=== PATIENT | male | born 1980 | race Caucasian/White ===

== ENCOUNTER 2020-05-11 11:42 | Emergency (ER) | payer BC, OTHER ==
[2020-05-11 12:00] VITALS: BP 132/93; PULSE 64; TEMP 98.2; BMI 24.4
[2020-05-11] MEDS ORDERED: KETOROLAC TROMETHAMINE 60 MG/2 ML VIAL IM ONE (12:07)
--- NOTE | 2020-05-11 12:08 | PDOC ---
History of Present Illness - General Chief Complaint: Toothache Stated Complaint: TOOTHACHE Time Seen by Provider: 05/11/20 12:00 History Source: Patient Exam Limitations: No Limitations Past History - Travel History Traveled outside of the country in the last 30 days: No Close contact w/someone who was outside of country & ill: No - Medical History Allergies/Adverse Reactions: Allergies Allergy/AdvReac Type Severity Reaction Status Date / Time No Known Allergies Allergy Verified 05/11/20 11:47 Home Medications: Ambulatory Orders Amox-Tr/K Cl [Augmentin - 875Mg Tablet] 1 tab PO BID #20 tablet 05/11/20 traMADol HCL [Ultram -] 50 mg PO Q8H PRN #10 tablet MDD 3 05/11/20 COPD: No - Psycho-Social/Smoking History Smoking History: Current every day smoker Have you smoked in the past 12 months: Yes Number of Cigarettes Smoked Daily: 20 Information on smoking cessation initiated: Yes 'Breaking Loose' booklet given: 02/01/16 - Substance Abuse Hx (Audit-C & DAST Scrn) How often the patient has a drink containing alcohol: Monthly or less How often the patient has six or more drinks on one occasion: Never Score: In Men: 4 or > Positive; In Women: 3 or > Positive: 1 Screen Result (Pos requires Nsg. Audit-10AR): Negative In the last yr the pt used illegal drug/Rx for NonMed reason: No Score: Yes response is considered Positive: 0 Screen Result (Positive result requires Nsg. DAST-10): Negative Review of Systems - Review of Systems Able to Perform ROS?: Yes Comments:: 05/11/20 12:45 CONSTITUTIONAL: Absent: fever, chills, diaphoresis, generalized weakness, malaise, loss of appetite HEENT: Present: dental pain Absent: rhinorrhea, nasal congestion, throat pain, throat swelling, difficulty swallowing, mouth swelling, ear pain, eye pain, visual Changes MUSCULOSKELETAL: Absent: myalgia, arthralgia, joint swelling SKIN: Absent: rash, itching, pallor NEUROLOGIC: Absent: headache, focal weakness or paresthesias, dizziness, unsteady gait, seizure, mental status changes, bladder or bowel incontinence PSYCHIATRIC: Absent: anxiety, depression, suicidal or homicidal ideation, hallucinations. *Physical Exam - Vital Signs Last Vital Signs Temp Pulse Resp BP Pulse Ox 98.2 F 64 19 132/93 97 05/11/20 11:46 05/11/20 11:46 05/11/20 11:46 05/11/20 11:46 05/11/20 11:46 - Physical Exam 05/11/20 12:22 GENERAL: The patient is awake, alert, and fully oriented, in no acute distress. HEAD: Normal with no signs of trauma. EYES: Pupils equal, round and reactive to light, extraocular movements intact, sclera anicteric, conjunctiva clear. MOUTH: Overall poor dentition. Multiple broken teeth on upper and lower gums. Broken tooth to left upper teeth with obvious infection. Number difficult to obtain as dental teeth are obviously out of place and deformed. EXTREMITIES: Normal range of motion, no edema. NEUROLOGICAL: Normal speech, normal gait. PSYCH: Normal mood, normal affect. SKIN: Warm, Dry, normal turgor, no rashes or lesions noted. Medical Decision Making - Medical Decision Making 05/11/20 12:43 Patient is 39-year-old male with no past medical history presents the ER with dental pain. He states that he was in the process of having his teeth removed when he lost his dental insurance. He states that he is unable to go to a dentist due to lack of insurance. He notes that he is having left upper gum pain and swelling. Denies difficulty swallowing, fever, sore throat. A/P: Dental infection On exam, pt with overall poor dentition Obvious dental infection without abscess to the L upper gums Will start patient on Augmentin and tramadol for infection and pain control Istop checked with no red flags noted Pt states dental insurance to kick in next week Advise immediate dental care once insurance starts DC home with strict return precaution I discussed the physical exam findings, ancillary test results and final diagnoses with the patient. I answered all of the patient's questions. The patient was satisfied with the care received and felt comfortable with the disch arge plan and treatment plan. The Patient agrees to follow up with the primary care physician/specialist within 24-72 hours. Return precautions were given. Discharge - Discharge Information Problems reviewed: Yes Clinical Impression/Diagnosis: Dental infection Condition: Improved Disposition: HOME - Additional Discharge Information Prescriptions: Amox-Tr/K Cl [Augmentin - 875Mg Tablet] 1 tab PO BID #20 tablet traMADol HCL [Ultram -] 50 mg PO Q8H PRN #10 tablet MDD 3 PRN Reason: Pain Prescription Drug Monitoring Program (I-STOP) results: I-STOP reviewed and no issues identified (Reference #: [id number]) - Follow up/Referral Referrals: Randall Lopez MD [Primary Care Provider] - [facility] [Outside] - Patient Discharge Instructions Patient Printed Discharge Instructions: DI for Tooth Decay Additional Instructions: You were seen for your dental infection today. Please take the Augmentin twice a day for 10 days to help with the pain and swelling. You may take ibuprofen 600 mg every 6 hours starting tonight as needed for pain. You may take the tramadol as needed for breakthrough pain. Do not drink or drive after taking this medication as it may make you drowsy. Please avoid eating very hot and very cold foods as to avoid avoid irritating the nerves. Use mouthwash after every meal. Please follow-up with dentistry this week. Return to the ER for any new or worsening symptoms. - Post Discharge Activity
[2020-05-11] MEDS ORDERED: KETOROLAC TROMETHAMINE 30 MG/1 ML VIAL ONE (12:14)
== END 2020-05-11 12:30 | disposition home or self-care (01) ==
LOC: JERFT 11:42
PROC: 3E0233Z Introduction of Anti-inflammatory into Muscle, Percutaneous Approach (ICD-10-PCS; principal; 2020-05-11)
DX: K04.7 Periapical abscess without sinus (principal)
CPT/HCPCS: 99284-25

== ENCOUNTER 2023-09-20 10:07 | Emergency (ER) | payer BC, OTHER ==
[2023-09-20] MEDS ORDERED: ONDANSETRON 4 MG/2 ML VIAL IVPUSH STA (10:11)
[2023-09-20] MEDS ORDERED: SODIUM CHLORIDE 1,000 ML IV STA (10:11)
[2023-09-20] MEDS ORDERED: ONDANSETRON 4 MG/2 ML VIAL ONE ×2 (10:23→13:25)
[2023-09-20 10:41] VITALS: BP 135/90; PULSE 70; RESP 16; TEMP 98.8; BMI 23.6
[2023-09-20] MEDS ORDERED: KETOROLAC TROMETHAMINE 30 MG/1 ML VIAL IVPUSH ONE (10:52)
[2023-09-20] MEDS ORDERED: HYDROmorphone HCl 2 MG/ML VIAL IVPUSH STA ×2 (10:52→13:14)
[2023-09-20] MEDS ORDERED: HYDROmorphone HCL/PF 1 MG/ML VIAL ONE ×2 (10:57→13:25)
[2023-09-20] MEDS ORDERED: KETOROLAC TROMETHAMINE 30 MG/1 ML VIAL ONE (10:58)
[2023-09-20 11:08] LABS: HEMATOCRIT 47.6 % (35.4-49); HEMOGLOBIN 15.9 G/dL (11.7-16.9); MCH 31.5 pg (25.7-33.7); MCHC 33.5 g/dl (32.0-35.9); MEAN CELL VOLUME 94.2 fl (80-96); PLATELET COUNT 281.1 10^3/uL (134-434); RBC 5.05 10^6/uL (4.00-5.60); WHITE BLOOD COUNT 12.5 10^3/uL (4.0-10.8)
[2023-09-20 11:21] LABS: ALBUMIN 4.6 g/dl (3.4-5.0); BILIRUBIN,TOTAL 0.6 mg/dl (0.2-1); CALCIUM 9.7 mg/dl (8.5-10.1); CREATININE 1.3 mg/dl (0.6-1.3); MAGNESIUM 1.6 mg/dL (1.8-2.4); POTASSIUM 3.9 mmol/L (3.5-5.1); TOT PROT 6.6 g/dl (6.4-8.2)
[2023-09-20 11:28] LABS: EPITHELIAL CELLS 0-5 /hpf
[2023-09-20 11:35] LABS: PLATELET ESTIMATE ADEQUATE
[2023-09-20] MEDS ORDERED: SODIUM CHLORIDE 0.9% 500 ML INFUS.BAG IV STA (12:11)
[2023-09-20] MEDS ORDERED: ONDANSETRON 4 MG/2 ML VIAL IVPUSH ONE (13:14)
[2023-09-20] MEDS ORDERED: SODIUM CHLORIDE 0.9% 500 ML INFUS.BAG IV ONE (13:15)
[2023-09-20] MEDS ORDERED: ACETAMINOPHEN 325 MG TABLET (FP) PO PRN (16:16)
[2023-09-20] MEDS ORDERED: SODIUM CHLORIDE 1,000 ML IV SCH (16:30)
== END 2023-09-20 16:51 | disposition home or self-care (01) ==
LOC: FER 10:07 → FM/S 14:33 → UNDOADMIN 14:33 → FM/S 14:50
PROC: 3E033GC Introduction of Other Therapeutic Substance into Peripheral Vein, Percutaneous Approach (ICD-10-PCS; principal; 2023-09-20)
PROC: 3E0333Z Introduction of Anti-inflammatory into Peripheral Vein, Percutaneous Approach (ICD-10-PCS; 2023-09-20)
PROC: 3E033GC Introduction of Other Therapeutic Substance into Peripheral Vein, Percutaneous Approach (ICD-10-PCS; 2023-09-20)
PROC: 3E033GC Introduction of Other Therapeutic Substance into Peripheral Vein, Percutaneous Approach (ICD-10-PCS; 2023-09-20)
PROC: 3E033GC Introduction of Other Therapeutic Substance into Peripheral Vein, Percutaneous Approach (ICD-10-PCS; 2023-09-20)
PROC: 3E0337Z Introduction of Electrolytic and Water Balance Substance into Peripheral Vein, Percutaneous Approach (ICD-10-PCS; 2023-09-20)
DX: N13.2 Hydronephrosis with renal and ureteral calculous obstruction (principal); R10.32 Left lower quadrant pain; R11.2 Nausea with vomiting, unspecified; R68.83 Chills (without fever)
CPT/HCPCS: 36415; 74176-TC; 80053; 81003; 81015; 83690; 83735; 84100; 85025; 93005; 99285-25

== ENCOUNTER 2024-04-05 10:14 | Emergency (ER) | payer BC, OTHER ==
[2024-04-05 10:23] VITALS: BP 129/91; PULSE 65; RESP 20; TEMP 99.1; BMI 22.6
== END 2024-04-05 11:03 | disposition home or self-care (01) ==
LOC: FER 10:14
DX: R68.84 Jaw pain (principal); K04.7 Periapical abscess without sinus
CPT/HCPCS: 99283-25

== ENCOUNTER 2024-07-25 09:14 | Emergency (ER) | payer BC, OTHER ==
[2024-07-25 09:21] VITALS: BP 137/102; PULSE 71; RESP 16; TEMP 98.2; BMI 23.6
[2024-07-25] MEDS ORDERED: KETOROLAC TROMETHAMINE 30 MG/1 ML VIAL ONE (09:31)
[2024-07-25] MEDS: KETOROLAC TROMETHAMINE 30 MG/1 ML VIAL IM ONE (09:34)
== END 2024-07-25 09:37 | disposition home or self-care (01) ==
LOC: FER 09:14
PROC: 3E0133Z Introduction of Anti-inflammatory into Subcutaneous Tissue, Percutaneous Approach (ICD-10-PCS; principal; 2024-07-25)
DX: R68.84 Jaw pain (principal); K04.7 Periapical abscess without sinus
CPT/HCPCS: 99284-25